=== PATIENT | female | born 1990 | race African-American/Black ===

== ENCOUNTER 2023-08-06 18:28 | Emergency (ER) | payer OTHER ==
[2023-08-06 18:39] VITALS: BP 129/82
[2023-08-06 18:53] LABS: URINE BILIRUBIN - DIPSTICK Negative (NEGATIVE); URINE BLOOD DIPSTICK Negative (NEGATIVE); URINE GLUCOSE - DIPSTICK Negative (NEGATIVE); URINE KETONE Negative (NEGATIVE); URINE LEUK ESTERASE Negative (NEGATIVE); URINE NITRITE - DIPSTICK Negative (Negative); URINE PROTEIN - DIPSTICK Negative (NEG-TRACE); URINE UROBILINOGEN - DIPSTICK 0.2 E.U./dL (0.2)
[2023-08-06 18:55] LABS: URINE COLOR Yellow
[2023-08-06] MEDS ORDERED: ONDANSETRON HCl 4 MG/2 ML SDV IV ONE (19:00)
[2023-08-06] MEDS ORDERED: SODIUM CHLORIDE 0.9% 1,000 ML IV ONE (19:00)
[2023-08-06] MEDS ORDERED: KETOROLAC TROMETHAMINE 30 MG/ML SDV IV ONE (19:00)
[2023-08-06 19:07] LABS: BASO% 0.4 % (0-3); EOS% 1.1 % (0-8); HEMATOCRIT 43.2 % (37.0-47.0); HEMOGLOBIN 14.2 g/dl (12.0-16.0); IMMATURE GRANULOCYTES 0.1 % (0.0-5.0); LYMPH% 26.9 % (15-41); MEAN CELL VOLUME 88.3 fL CALC (80.0-100.0); MEAN CORPUSCULAR HGB CONC 32.9 g/dL CAL (32.0-36.0); MONO% 6.9 % (2-13); NEUT# 6.32 thou/uL (2.00-7.15); NEUT% 64.6 % (42-76); RED BLOOD COUNT 4.89 mill/uL (4.20-5.60); RED CELL DISTRI WIDTH 12.5 % (11.5-15.5)
[2023-08-06 19:25] LABS: ALBUMIN 4.7 g/dL (3.2-5.0); BILIRUBIN, TOTAL 0.6 mg/dL (0.02-1.3); CREATININE 0.8 mg/dL (0.5-1.0); POTASSIUM 4.7 mmol/l (3.5-5.1); TOTAL PROTEIN 8.8 g/dL (6.3-8.2)
[2023-08-06 19:35] VITALS: BP 121/84
[2023-08-06 19:45] VITALS: BP 128/75
[2023-08-06 20:15] VITALS: BP 113/79
[2023-08-06 20:30] VITALS: BP 119/78
[2023-08-06] MEDS ORDERED: DICYCLOMINE HYD10 MG PO (20:35)
[2023-08-06 20:45] VITALS: BP 118/89
== END 2023-08-06 20:45 | disposition home or self-care (01) ==
LOC: ED 18:28
PROVIDERS: Nurse Practitioner
DX: R10.32 Left lower quadrant pain (principal); Z87.442 Personal history of urinary calculi

== ENCOUNTER 2023-10-16 11:55 | Emergency (ER) | payer OTHER ==
[~2023-10-16] VITALS: Ht 167.6 cm; Wt 96.1 kg
[~2023-10-16 11:55] MED LIST: DICYCLOMINE HYD10 MG PO
[2023-10-16 13:55] LABS: URINE BILIRUBIN - DIPSTICK Negative (NEGATIVE); URINE BLOOD DIPSTICK Negative (NEGATIVE); URINE GLUCOSE - DIPSTICK Negative (NEGATIVE); URINE KETONE 15 mg/dL (NEGATIVE); URINE LEUK ESTERASE Negative (NEGATIVE); URINE NITRITE - DIPSTICK Negative (Negative); URINE PROTEIN - DIPSTICK Negative (NEG-TRACE)
[2023-10-16 13:57] LABS: URINE COLOR Yellow
[2023-10-16] MEDS ORDERED: ZPAK PO (14:10)
[2023-10-16 14:47] VITALS: BP 122/86
== END 2023-10-16 14:47 | disposition home or self-care (01) ==
LOC: ED 11:55
PROVIDERS: Nurse Practitioner
DX: B34.9 Viral infection, unspecified (principal); Z20.822 Contact with and (suspected) exposure to COVID-19